=== PATIENT | male | born 1975 | race Caucasian/White ===

== ENCOUNTER 2025-07-07 10:31 | Emergency (ER) | payer BC, SELFPAY ==
--- NOTE | 2025-07-07 10:40 | ED_ITS ---
HPI - General Adult General Chief complaint: Upper Respiratory Infection Stated complaint: Congestion/lump lower back Time Seen by Provider: 07/07/25 11:02 Source: patient, RN notes reviewed and old records reviewed Mode of arrival: ambulatory Limitations: no limitations History of Present Illness HPI narrative: 49-year-old male presents to the [facility] with 2 complaints. Reports nasal congestion for 2 days. Has been taking DayQuil. Patient also reports a lump to the right lower back that he noticed on , 4 days ago. Patient states that he did take DayQuil, symptoms have improved. On palpation of the lower back patient states that it is no longer tender, symptoms have improved. No loss or retention of bowel or bladder. No numbness or tingling in extremities. Related Data Home Medications ?Medication ?Instructions ?Recorded ?Confirmed ?Last Taken ?Type atorvastatin 40 mg tablet mg 07/07/25 Unknown History buprenorphine HCl 300 mcg buccal mcg buccal 07/07/25 Unknown History film (Belbuca) carvedilol 25 mg tablet mg 07/07/25 Unknown History dapagliflozin propanediol 10 mg mg 07/07/25 Unknown H istory tablet ezetimibe 10 mg tablet mg 07/07/25 Unknown History folic acid 1 mg tablet 07/07/25 Unknown History hydralazine 50 mg tablet mg 07/07/25 Unknown History hydrocodone 10 mg-acetaminophen tablet 07/07/25 Unkno wn History 325 mg tablet magnesium oxide 400 mg (241.3 mg mg 07/07/25 Unknown History magnesium) tablet potassium chloride 10 mEq meq PO 07/07/25 Unknown His tory tablet,extended release spironolactone 25 mg tablet mg 07/07/25 Unknown Histo ry tadalafil 10 mg tablet mg 07/07/25 Unknown History tirzepatide 15 mg/0.5 mL mg subcut 07/07/25 Unknown History subcutaneous pen injector (Mounjaro) Allergies Allergy/AdvReac Type Severity Reaction Status Date / Time lisinopril Allergy Unknown Unknown Verified 07/07/25 10:43 Review of Systems 2 Review of Systems: All systems reviewed & are unremarkable except as noted in HPI and below Constitutional: Constitutional: Reports no additional constitutional complaints ENT: Reports as per HPI and Reports nasal congestion Cardiovascular: Cardiovascular: Reports no additional cardiovascular complaints, Denies chest pain and Denies dyspnea Respiratory: Respiratory: Reports no additional respiratory complaints, Denies chest congestion, Denies cough and Denies dyspnea Musculoskeletal: Musculoskeletal: Reports as per HPI Integumentary/Breasts: Skin/Breast: Reports system reviewed and no additional complaints, except as docu [facility] Past Medical History Medical History (Updated 07/08/25 @ 16:42 by Anna Moura APRN) History of high cholesterol History of high blood pressure Comments At the time of my signature, I reviewed and agree with the nursing past medical, surgical, social, and family history. There is no relevant family history pertinent to the patient complaint. Exam 2 Const: General: cooperative, healthy appearing, comfortable, no acute distress, well developed, alert and well nourished Nutritional Appearance: w ell nourished Orientation/consciousness: patient oriented x3 Limitations: no limitations HENMT: Head: normal to inspection Ears: hearing grossly normal bilaterally, external ears normal, TM's normal bilaterally, EAC's normal, mastoids normal and no periauricular adenopathy Face and sinus: normal facial exam, sinuses nontender and face symmetric Mouth: Yes Normal oral and palatal mucosa present, Yes lip normal, Yes tongue normal and Yes moist mucous membranes T hroat: posterior oropharynx normal, uvula midline, postnasal drainage and no uvular edema Eyes: General: appearance normal, both eyes and all related structures A lignment and Position: alignment normal Neck: Neck: normal visual inspection, full ROM, no lymphadenopathy and no meningeal signs Chest: Chest palpation & inspection: normal inspection of the chest Resp: Effort & Inspection: normal respiratory effort and able to speak in complete sentences Auscultation: clear to auscultation bilaterally, no crackles, no rales, no rhonchi and no wheezes Cardio: Rate: regular rate GI: GI Palp: No abdominal tenderness : General: Yes no CVA tenderness Back/Spine/Pelvis: Thoracic/Lumbar Spine: No thoracic spinal tenderness and No lumbar spinal tenderness Back/spine/pelvis image: 1. tender, muscle spasm Skin: General skin exam: normal color and no rashes or lesions noted Neuro: General: patient oriented x3, gait normal, moves all extremities and no meningeal signs Cognition (Neuro): normal cognition Speech: normal speech Gait exam (Neuro): Normal gait present Extrem: General: normal to inspection, full ROM, capillary refill normal and normal gait Psych: Appearance: grossly normal and well kempt Mental Status: mental status grossly normal Speech and movement: Normal speech and movement present and Clear speech present Affect: normal affect Attitude: cooperative Course Course Level of Care: Express Care Visit Vital Signs Vital signs: Vital Signs Oxygen Delivery Room Air 07/07/25 10:38 Temperature 97.8 F 07/07/25 10:43 Pulse Rate 96 07/07/25 10:43 Respiratory Rate 16 07/07/25 10:43 Blood Pressure 105/64 07/07/25 10:43 Pulse Oximetry 97 07/07/25 10:43 Oxygen Delivery Room Air 07/07/25 10:43 reviewed MDM MDM Narrative Medical decision making narrative: patient sitting in exam room. Patient is nontoxic, vitals stable. Patient with 2 complaints. Has a lump that has improved. Noticed a lump 4 days ago. States that he does work out at the gym. No signs of infection. No red flag symptoms. Patient also with 2 day history of sinus congestion did take DayQuil once this morning which he rib reports has improved his symptoms. Patient with no acute findings noted on exam. Patient was offered a muscle relaxer states that he has pain medication at home. Discussed a closely monitoring the medications he takes due to his cardiac history for upper respiratory viral infection. Patient is appropriate for outpatient treatment with close follow-up Discharge instructions reviewed with patient, as well as provided in writing per nursing staff. The instructions also include specific and strict return/GO TO THE ER as well as f/u information. All questions have been answered, and the patient deny any further questions with discharge and discharge plan. Some parts of this dictation were generated by voice recognition software and may contain typographical and/or grammatical inaccuracies. Differential Diagnosis Differential Diagnosis: Differential diagnostic considerations for upper respiratory infection include upper respiratory infection, croup, otitis media, sinusitis, viral infection, bronchitis, influenza, pharyngitis, strep, uvulitis.? Discharge Plan Discharge Clinical Impression: Congested nose, Post-nasal drainage, Strain of muscle, fascia and tendon of lower back, initial encounter Upper respiratory infection Qualifiers: URI type: unspecified viral URI Qualified Code(s): J06.9 - Acute upper respiratory infection, unspecified Patient Disposition: Home Condition: Stable Instructions: Antibiotic Form, Low Back Strain (ED), Viral Syndrome (ED), Lower Back Exercises (ED), Postnasal Drip (DC) Additional Instructions: with your medical history especially high blood pressure please check with the pharmacist before taking any [id number] products. Your symptoms are likely due to a viral illness, which is not treated with antibiotics. Typically viral infections last 7-10 days, can linger for couple of weeks. It is very important to treat your symptoms. Drink plenty of water, Gatorade, Pedialyte, ice pops or Jell-O. -Alternate Tylenol and Motrin per package directions for fever or pain. You can alternate every 4 hours -Antihistamine medication such as Zyrtec/Claritin/Brittni during the day can help improve symptoms. -doing daily nasal irrigations can help relieve pressure your sinuses. Things like a Neti pot -Use Flonase twice a day for 5 days then daily to help reduce the inflammation and dry up your sinuses. -You can also use Coricidin HBP. Be sure to drink plenty of water with this medication at least 8 ounces with every dose and it is important to drink 8 to 10 glasses of water per day. Water is a natural decongestant -Eat and drink things that are easy to swallow, like tea or soup, or popsicles. -Oral rinses such as: Salt water gargles and/or may use topical anesthetic (eg. Chloraseptic spray) or lozenges to relieve dryness or throat pain). -Frequent hand washing or hand butadiene compressor operator is one of the best ways to prevent spread of infection. -Using a vaporizer or humidifier at night will also help thin secretions and help with coughing up phlegm. -Follow up with primary care provider in 7-10 days if condition is not improving - For new or worsening symptoms go directly to the nearest ER Patient Language: Welsh Prescriptions: No Action atorvastatin 40 mg tablet carvedilol 25 mg tablet potassium chloride 10 mEq tablet extended release PO hydrocodone-acetaminophen 10-325 mg tablet spironolactone 25 mg tablet magnesium oxide 400 mg (241.3 mg magnesium) tablet folic acid 1 mg tablet hydralazine 50 mg tablet ezetimibe 10 mg tablet tadalafil 10 mg tablet dapagliflozin propanediol 10 mg tablet buprenorphine HCl [Belbuca] 300 mcg film BUCCAL Mounjaro 15 mg/0.5 mL pen injector SUBCUT Follow-up/Referrals: PHYSICIAN,IT TRAINEE [Primary Care Provider, Internal Medicine] Stand Alone Forms: Work/School Release IP Time of Disposition: 11:21
[2025-07-07 10:43] VITALS: BP 105/64; PULSE 96; RESP 16; TEMP 36.6; O2SAT 97
== END 2025-07-07 11:24 | disposition home or self-care (01) ==
PROVIDERS: Emergency Provider Nurse Practitioner
DX: R09.81 Nasal congestion (principal); R09.82 Postnasal drip; S39.012A Strain of muscle, fascia and tendon of lower back, initial encounter; X58.XXXA Exposure to other specified factors, initial encounter; J06.9 Acute upper respiratory infection, unspecified; E78.00 Pure hypercholesterolemia, unspecified; I10 Essential (primary) hypertension
CPT/HCPCS: 99202; G0463